=== PATIENT | male | born 1955 | race American Indian/Alaskan Native ===

== ENCOUNTER 2020-02-04 18:48 | Emergency (ER) | payer MEDICARE ==
[2020-02-04 19:38] VITALS: BP 144/73
--- NOTE | 2020-02-04 19:38 | Event Note ---
ED Screening Note ED Screening Note: BLE swelling and pain for 2 weeks no CP no SOB pmhx DM no allergies to meds This initial assessment/diagnostic orders/clinical plan/treatment(s) is/are subject to change based on patients health status, clinical progression and re- assessment by fellow clinical providers in the ED. Further treatment and workup at subsequent clinical providers discretion. Patient/guardian urged not to elope from the ED as their condition may be serious if not clinically assessed and managed. Initial orders include: labs cxr US
--- NOTE | 2020-02-04 20:10 | XRay Report ---
CHEST 2 VIEWS INDICATION / CLINICAL INFORMATION: BLE edema. COMPARISON: None available. FINDINGS: SUPPORT DEVICES: None. HEART / MEDIASTINUM: No significant abnormality. LUNGS / PLEURA: No significant pulmonary or pleural abnormality. No pneumothorax. ADDITIONAL FINDINGS: No significant additional findings. IMPRESSION: No significant abnormality Signer Name: Geovanni Saunders MD FACR Signed: 02/04/2020 8:06 PM Workstation Name: [id number]
[2020-02-04 20:23] LABS: Basophils % (Auto) 0.3 % (0.0-1.8); Eosinophils % (Auto) 1.3 % (0.0-4.3); Hematocrit 28.6 % (35.5-45.6); Hemoglobin 9.7 gm/dl (11.8-15.2); Lymphocytes # (Auto) 1.1 K/mm3 (1.2-5.4); Mean Corpuscular HGB Conc 34 % (32-34); Monocytes # (Auto) 0.4 K/mm3 (0.0-0.8); Monocytes % (Auto) 11.5 % (0.0-7.3); Platelet Count 162 K/mm3 (140-440); Red Blood Count 4.18 M/mm3 (3.65-5.03); Red Cell Distribution Width 16.4 % (13.2-15.2)
[2020-02-04 20:24] LABS: Mean Corpuscular Volume 68 fl (84-94)
[2020-02-04 20:44] LABS: Alanine Aminotransferase 18 units/L (7-56); Albumin 3.1 g/dL (3.9-5); BUN/Creatinine Ratio 19; Blood Urea Nitrogen 21 mg/dL (9-20); Calcium 7.8 mg/dL (8.4-10.2); Hemolysis Index 11
[2020-02-04] MEDS ORDERED: IBUPROFEN 600 MG TAB PO ONE (21:54)
[2020-02-04] MEDS ORDERED: HYDROcodone/ACETAMINOPHEN 5-325 MG TAB PO ONE (21:54)
[2020-02-04] MEDS ORDERED: ONDANSETRON 4 MG ODT TAB PO ONE (21:54)
--- NOTE | 2020-02-04 22:00 | Emergency Department Report ---
ED Extremity Problem HPI - General Chief complaint: Extremity Problem,Nontraumatic Stated complaint: SWOLLEN LEG Time Seen by Provider: 02/04/20 19:37 Source: patient Mode of arrival: Ambulatory Limitations: No Limitations - History of Present Illness Initial comments: Patient is a 64-year-old -[place] male with a history of hhm-rjrjcek-scoxofqms diabetes, esophageal cancer in remission and prior brain surgery presents to the ED with complaint of acute onset persistent bilateral lower extremity pain and swelling especially bilateral ankles and lower legs for the last 2 weeks. Patient states that his primary care physician ordered outpatient Doppler ultrasound to rule out DVT and that this was done 4 days ago but that the results are still pending. Patient states that the pain has been persistent especially with ambulation and that the swelling always ankles and lower leg has worsened in the last 2 days. Patient denies chest pain, shortness of breath, dizziness, syncope, numbness and tingling or weakness of lower extremities bilaterally, back pain, cough, fever, chills, hematuria or palpitations, traumatic injury or heavy lifting. MD Complaint: extremity pain (bilateral lower extremity pain, swelling), extremity swelling (bilateral ankle pain and swelling), joint swelling -: Sudden, week(s) (2) Location: bilateral lower extremity -: Yes myalgia, Yes arthralgia, No associated dyspnea, No associated chest pain Radiation: distal Severity scale (0 -10): 7 Quality: aching, sharp Consistency: constant Improves with: nothing Worsens with: weight bearing, walking, palpation Associated Symptoms: denies other symptoms, arthralgias. denies: chest pain, shortness of breath, fever, myalgias - Related Data Previous Rx's Medication Instructions Recorded Last Taken Type Ibuprofen [Motrin] 600 mg PO Q8H PRN #30 tablet 02/04/20 Unknown Rx traMADoL [Ultram] 50 mg PO Q6HR PRN #12 tablet 02/04/20 Unknown Rx Allergies Allergy/AdvReac Type Severity Reaction Status Date / Time No Known Allergies Allergy Unverified 02/04/20 19:30 ED Review of Systems ROS: Stated complaint: SWOLLEN LEG Other details as noted in HPI Constitutional: denies: chills, fever Eyes: denies: eye pain, eye discharge, vision change ENT: denies: ear pain, throat pain Respiratory: denies: cough, shortness of breath, wheezing Cardiovascular: denies: chest pain, palpitations Endocrine: no symptoms reported Gastrointestinal: denies: abdominal pain, nausea, diarrhea Genitourinary: denies: urgency, dysuria Musculoskeletal: joint swelling (Bilateral lower leg and ankle pain and swelling), arthralgia (Bilateral ankle pain and swelling). denies: back pain Skin: denies: rash, lesions Neurological: denies: headache, weakness, paresthesias Psychiatric: denies: anxiety, depression Hematological/Lymphatic: denies: easy bleeding, easy bruising ED Past Medical Hx - Past Medical History Hx Diabetes: Yes - Surgical History Past Surgical History?: Yes Additional Surgical History: Esophageal CA removed, Brain SX - Social History Smoking Status: Never Smoker Substance Use Type: None - Medications Home Medications: Home Medications Medication Instructions Recorded Confirmed Last Taken Type Ibuprofen [Motrin] 600 mg PO Q8H PRN #30 tablet 02/04/20 Unknown Rx traMADoL [Ultram] 50 mg PO Q6HR PRN #12 tablet 02/04/20 Unknown Rx ED Physical Exam - General Limitations: No Limitations General appearance: alert, in no apparent distress - Head Head exam: Present: atraumatic, normocephalic, normal inspection - Eye Eye exam: Present: normal appearance, PERRL, EOMI Pupils: Present: normal accommodation - ENT ENT exam: Present: normal exam, normal orophraynx, mucous membranes moist, TM's normal bilaterally, normal external ear exam - Neck Neck exam: Present: normal inspection, full ROM - Respiratory Respiratory exam: Present: normal lung sounds bilaterally. Absent: respiratory distress, wheezes, rhonchi, stridor, chest wall tenderness, accessory muscle use, decreased breath sounds - Cardiovascular Cardiovascular Exam: Present: normal rhythm, bradycardia, normal heart sounds. Absent: systolic murmur, diastolic murmur, rubs, gallop - GI/Abdominal GI/Abdominal exam: Present: soft, normal bowel sounds. Absent: tenderness, hyperactive bowel sounds, hypoactive bowel sounds, organomegaly - Extremities Exam Extremities exam: Present: normal inspection, full ROM, tenderness (Palpable bilateral ankle tenderness; palpable bilateral lower leg tenderness and 2+ edema), normal capillary refill, pedal edema (2+ edema bilaterally), joint swelling (Bilateral ankle swelling). Absent: calf tenderness - Back Exam Back exam: Present: normal inspection, full ROM. Absent: tenderness, CVA tenderness (L), muscle spasm, paraspinal tenderness, vertebral tenderness - Neurological Exam Neurological exam: Present: alert, oriented X3, CN II-XII intact, normal gait, reflexes normal - Psychiatric Psychiatric exam: Present: normal affect, normal mood - Skin Skin exam: Present: warm, dry, intact, normal color. Absent: rash ED Course Vital Signs 02/04/20 19:28 Pulse Rate 57 L Respiratory 20 Rate Blood Pressure 144/73 O2 Sat by Pulse 99 Oximetry ED Medical Decision Making - Lab Data Result diagrams: 02/04/20 19:58 02/04/20 19:58 - Radiology Data Radiology results: report reviewed, image reviewed Findings [facility] [address] [place] [address] XRay Report Signed Patient: LES MACK MR#: [id number] : 1955 Acct:[id number] Age/Sex: 64 / M ADM Date: 02/04/20 Loc: ED Attending Dr: Ordering Physician: MARILIN SANCHEZ Date of Service: 02/04/20 Procedure(s): XR chest routine 2V Accession Number(s): [id number] cc: MARILIN SANCHEZ Fluoro Time In Minutes: CHEST 2 VIEWS INDICATION / CLINICAL INFORMATION: BLE edema. COMPARISON: None available. FINDINGS: SUPPORT DEVICES: None. HEART / MEDIASTINUM: No significant abnormality. LUNGS / PLEURA: No significant pulmonary or pleural abnormality. No pneumotho rax. ADDITIONAL FINDINGS: No significant additional findings. IMPRESSION: No significant abnormality Signer Name: Geovanni Saunders MD FACR Signed: 02/04/2020 8:06 PM Workstation Name: [id number] Transcribed By: MS Dictated By: Geovanni Saunders MD Electronically Authenticated By: Geovanni Saunders MD Signed Date/Time: 02/04/202005 DD/ 04 TD/TT: - Medical Decision Making This is a 64-year-old -[place] male with a history of owl-kcaitfp-ccbdincto diabetes, esophageal cancer in remission and prior brain surgery presents to the ED with complaint of acute onset persistent bilateral lower extremity pain and swelling especially bilateral ankles and lower legs for the last 2 weeks. Patient states that his primary care physician ordered outpatient Doppler ultrasound to rule out DVT and that this was done 4 days ago but that the results are still pending. Patient states that the pain has been persistent especially with ambulation and that the swelling always ankles and lower leg has worsened in the last 2 days. In the ED, patient is alert and oriented x3 and is not in distress. Lab test results were reviewed and are all nonactionable. Chest x-ray shows no acute cardiopulmonary abnormalities or pneumonitis. Patient declined another Doppler ultrasound of his lower extremities stating that he would be comfortable to wait for the lower extremity Doppler ultrasound studies report performed about 5 days ago. Patient was therefore treated for pain in the ED and was discharged home on pain medications and advised to follow-up with his primary care physician in 3 to 5 days for reevaluation. Patient was otherwise advised return to the ED immediately if symptoms get worse. - Differential Diagnosis Muscle strain; DVT; PVD; CHF; CKD; Gout; Osteoarthritis Critical care attestation.: If time is entered above; I have spent that time in minutes in the direct care of this critically ill patient, excluding procedure time. ED Disposition Clinical Impression: Bilateral lower extremity pain, Swelling of both lower extremities Disposition: DC- TO HOME OR SELFCARE Is pt being admited?: No Does the pt Need Aspirin: No Condition: Stable Instructions: Arthralgia (ED), Leg Edema (ED) Additional Instructions: Take medication with food, drink plenty of fluids and follow-up with your primary care physician in 5 to 7 days for reevaluation. Return to the ED imm ediately if symptoms get worse. Prescriptions: Ibuprofen [Motrin] 600 mg PO Q8H PRN #30 tablet PRN Reason: Pain traMADoL [Ultram] 50 mg PO Q6HR PRN #12 tablet PRN Reason: Pain Referrals: JOLEEN CARLTON MD [Primary Care Provider] - 3-5 Days CUATE IZAGUIRRE MD [Staff Physician] - 3-5 Days Time of Disposition: 22:04 Print Language: GREENLANDIC
== END 2020-02-04 22:25 | disposition home or self-care (01) ==
LOC: ED 18:48
DX: M79.604 Pain in right leg (principal); M79.605 Pain in left leg; M79.89 Other specified soft tissue disorders; E11.9 Type 2 diabetes mellitus without complications; Z98.890 Other specified postprocedural states; Z79.1 Long term (current) use of non-steroidal anti-inflammatories (NSAID); Z79.899 Other long term (current) drug therapy; Z88.8 Allergy status to other drugs, medicaments and biological substances
CPT/HCPCS: 36415; 71046; 80053; 83880; 85025; Q0162